=== PATIENT | male | born 1985 | race Hispanic/Latino ===

== ENCOUNTER 2025-03-04 02:05 | Emergency (ER) | payer BC ==
[~2025-03-04] VITALS: Ht 180.3 cm; Wt 102.1 kg
[2025-03-04] MEDS ORDERED: KETOROLAC TROMETHAMINE 30 MG/ML VIAL IV ONE (02:45)
[2025-03-04] MEDS ORDERED: SODIUM CHLORIDE 0.9% 1,000 ML IV ONE (02:45)
[2025-03-04 02:46] LABS: BASOPHILS 0.4 % (0.2-1.2); BLOOD/HGB, URINE NEGATIVE (Negative); EOSINOPHILS 2.2 % (0.8-7.0); KETONE, URINE NEGATIVE (Negative); LEUK ESTERASE, URINE NEGATIVE (negative); LYMPHOCYTES 30.7 % (21.8-53.1); MCH 29.5 PG (25.7-32.2); MCHC 34.7 g/dL (32.3-36.5); MCV 85.1 fL (79.0-92.2); MONOCYTES 8.0 % (5.3-12.2); NEUTROPHILS 58.4 % (34.0-67.9); NITRITE, URINE NEGATIVE (negative); RBC 5.49 M/uL (4.63-6.08)
[2025-03-04 03:12] LABS: ALT (SGPT) 39.0 U/L (14-59); AST (SGOT) 19.0 U/L (15-37); GLOMERULAR FILTRATION RATE,EST 117.0 mL/min (>60); PROTEIN, TOTAL 8.6 g/dL (6.4-8.2); UREA NITROGEN 21.0 mg/dL (7-18)
[2025-03-04] MEDS ORDERED: SUCRALFATE 1 GM TAB PO ONE (04:45)
[2025-03-04] MEDS ORDERED: LIDOCAINE & ANTACID 35 ML BTL PO ONE (04:45)
[2025-03-04] MEDS ORDERED: ONDANSETRON ODT8 MG PO (06:03)
[2025-03-04] MEDS ORDERED: HYDROCODON-ACE1 EA10 PO (06:03)
[2025-03-04] MEDS ORDERED: HYDROCODONE BIT/ACETAMINOPHEN 5/325 MG 1 TAB HOME.PACK PO ONE (06:15)
[2025-03-04] MEDS ORDERED: ONDANSETRON 4 MG HOME.PACK SL ONE (06:15)
[2025-03-04 06:18] VITALS: BP 135/98
== END 2025-03-04 06:27 | disposition home or self-care (01) ==
LOC: ED 02:05
PROVIDERS: Family Medicine
DX: K85.90 Acute pancreatitis without necrosis or infection, unspecified (principal)
CPT/HCPCS: 36415; 74177; 76705; 80053; 81003; 83690; 85025; 96374; 99284-25; A9270; J2405; J7030; Q9967